=== PATIENT | female | born 1980 | race Caucasian/White ===

== ENCOUNTER → 2018-03-08 | Outpatient (CLI) | payer OTHER ==
[~2018-03-08] MED LIST: CEPH500 PO; HYDACE5 PO
== END | disposition home or self-care (01) ==
LOC: LAB SHORT 13:10 → LAB 13:10
PROVIDERS: Nurse Practitioner Family
DX: Z12.4 Encounter for screening for malignant neoplasm of cervix (principal); Z11.51 Encounter for screening for human papillomavirus (HPV)
CPT/HCPCS: G0145

== ENCOUNTER → 2019-07-12 | Outpatient (CLI) | payer OTHER | END | disposition home or self-care (01) | LOC: OLS 07:47 → LAB SHORT 07:47 | DX: L60.2 Onychogryphosis (principal); B35.1 Tinea unguium | CPT/HCPCS: 88305; 88312 ==

== ENCOUNTER → 2022-10-01 | Outpatient (CLI) | payer OTHER ==
[2022-10-08 09:10] LABS: HPV 16 Negative (Negative); HPV 18 Negative (Negative); HPV OTHER HR TYPES Negative (Negative)
== END | disposition home or self-care (01) ==
LOC: LAB 12:00 → LAB SHORT 12:00
PROVIDERS: Nurse Practitioner Family
DX: Z01.419 Encounter for gynecological examination (general) (routine) without abnormal findings (principal); Z11.51 Encounter for screening for human papillomavirus (HPV)
CPT/HCPCS: 87624; G0123

== ENCOUNTER → 2022-11-16 | Outpatient (CLI) | payer OTHER | END | disposition home or self-care (01) | LOC: PLD 07:45 → LAB SHORT 07:45 | DX: L60.2 Onychogryphosis (principal); B35.1 Tinea unguium | CPT/HCPCS: 88305; 88312 ==

== ENCOUNTER 2024-08-08 19:29 | Emergency (ER) | payer OTHER ==
[~2024-08-08] VITALS: Ht 177.8 cm; Wt 74.8 kg
[2024-08-08 19:43] VITALS: BP 155/107
[2024-08-08] MEDS ORDERED: Amoxicillin/Clavulanate K 875 MG Tab PO ONE (20:10)
[2024-08-08] MEDS ORDERED: Diphth,Pertuss(Acell),Tet Vac 0.5 ML VIAL IM ONE (20:10)
[2024-08-08] MEDS ORDERED: AMOCLA875 PO (20:18)
== END 2024-08-08 20:33 | disposition home or self-care (01) ==
LOC: ER 19:29
DX: S01.551A Open bite of lip, initial encounter (principal); S01.85XA Open bite of other part of head, initial encounter; W54.0XXA Bitten by dog, initial encounter
CPT/HCPCS: 90471; 90715; 99283-25; A9270

== ENCOUNTER → 2025-10-09 | Outpatient (CLI) | payer OTHER ==
[~2025-10-09] MED LIST changes: +AMOCLA875 PO
== END ==
LOC: LAB 12:29 → LAB SHORT 12:29
PROVIDERS: Nurse Practitioner Family
DX: Z01.419 Encounter for gynecological examination (general) (routine) without abnormal findings (principal)
CPT/HCPCS: 87624; G0145